=== PATIENT | female | born 1960 | race Caucasian/White ===

== ENCOUNTER 2019-12-19 14:18 | Emergency (ER) | payer BC, SELFPAY ==
[2019-12-19 14:15] VITALS: BP 133/79; PULSE 81; RESP 18; TEMP 36.9; O2SAT 98; BMI 32.9
--- NOTE | 2019-12-19 14:33 | DI.RAD.S_ITS ---
PROCEDURE: XR HAND RT MIN 3V INDICATIONS: GLF, pain in 3 finger TECHNIQUE: Three views of the right hand acquired. COMPARISON: None. FINDINGS: Bones: No fractures or dislocations. Carpal bones are normally aligned. No suspicious bony lesions. Soft tissues: No suspicious soft tissue calcifications. IMPRESSION: 1. No fracture or dislocation. Dictated by: Osito Cosme M.D. on 12/19/2019 at 15:24 Approved by: Osito Cosme M.D. on 12/19/2019 at 15:25
--- NOTE | 2019-12-19 14:33 | DI.RAD.S_ITS ---
PROCEDURE: XR FEMUR RT MIN 2V INDICATIONS: GLF, pain TECHNIQUE: 2 views of the femur were acquired. COMPARISON: [facility], CR, XR KNEE RT 1TO2V, 12/19/2019, 14:32. FINDINGS: Bones: No fractures or dislocations. No suspicious bony lesions. Soft tissues: No suspicious soft tissue calcifications or masses. IMPRESSION: 1. No fracture or dislocation. Dictated by: Osito Cosme M.D. on 12/19/2019 at 15:21 Approved by: Osito Cosme M.D. on 12/19/2019 at 15:23
--- NOTE | 2019-12-19 14:33 | DI.RAD.S_ITS ---
PROCEDURE: XR TIBIA FUBULA RT 2V INDICATIONS: GLF, pain TECHNIQUE: 2 views of the tibia and fibula were acquired. COMPARISON: [facility], CR, XR KNEE RT 1TO2V, 12/19/2019, 14:32. FINDINGS: Bones: No fractures or dislocations. No suspicious bony lesions. Soft tissues: No suspicious soft tissue calcifications or masses. IMPRESSION: 1. No fracture or dislocation. Dictated by: Osito Cosme M.D. on 12/19/2019 at 15:20 Approved by: Osito Cosme M.D. on 12/19/2019 at 15:21
--- NOTE | 2019-12-19 14:33 | DI.RAD.S_ITS ---
PROCEDURE: XR KNEE RT 1TO2V INDICATIONS: GLF, pain TECHNIQUE: To views of the knee were acquired. COMPARISON: None. FINDINGS: Bones: No fractures or dislocations. There is tricompartmental osteophytosis. No suspicious bony lesions. Soft tissues: There is a small joint effusion. No suspicious soft tissue calcifications. IMPRESSION: 1. No fracture or dislocation. 2. Small joint effusion. Dictated by: Osito Cosme M.D. on 12/19/2019 at 14:42 Approved by: Osiot Cosme M.D. on 12/19/2019 at 15:20
[2019-12-19] MEDS: ACETAMINOPHEN 325 MG TABLET PO (14:40)
[2019-12-19] MEDS: OXYCODONE/ACETAMINOPHEN 5/325 TABLET 1 TAB PO (14:41)
[2019-12-19 15:57] VITALS: PULSE 80; O2SAT 97
[2019-12-19 16:00] VITALS: PULSE 80; O2SAT 97
[2019-12-19 16:30] VITALS: PULSE 85; O2SAT 96
--- NOTE | 2019-12-19 16:50 | ED.FALL ---
HPI - Fall <Alex Goel [facility] - Last Filed: 12/20/19 02:01> General Chief Complaint: Fall Stated Complaint: GLF Time Seen by Provider: 12/19/19 14:18 Source: patient and EMS Mode of arrival: EMS Limitations: no limitations History of Present Illness HPI Narrative: This is a 59-year-old female, who has medical history as hypertension and type 2 diabetes presents to ED with EMS with chief complain of right femur, knee, tib-fib discomfort and right 3rd finger pain after she accidentally slipped on a tile fell and landed on carpet. She reports when she fell her foot was planted on the floor while her leg/body was rotated outward. She fell something popped when she attempted to bear weight and could not stand on affected leg. Patient reports pain is 9/10 and which is throbbing. Patient reports is able to move dominant right hand 3rd finger but with discomfort. She thinks had fallen on outstretched right hand/finger. Patient reports intact sensation in upper and lower extremities and is able to move all toes and fingers. Patient denies injuring her head or other areas. Patient previous injuries or fractures to affected extremities. Related Data Previous Rx's Medication Instructions Recorded oxycodone-acetaminophen [Percocet] 1 tab PO TID PRN #7 tab 12/19/19 Allergies Allergy/AdvReac Type Severity Reaction Status Date / Time Penicillins Allergy Verified 12/19/19 14:43 pseudoephedrine Allergy Verified 12/19/19 14:43 [From Sudafed] hydrocodone AdvReac ITCHING Verified 12/19/19 14:41 Review of Systems <Alex LoeraTyrone [facility] - Last Filed: 12/20/19 02:01> Review of Systems Narrative: General: Denies fever, chills, fatigue, malaise, sweats. HEENT: Denies sinus pain, ear pain, sore throat, difficulty swallowing, dizziness. Respiratory: Denies dyspnea, cough, wheezing, hemoptysis, sputum. Cardiovascular: Denies chest pain, palpitations, orthopnea, edema. Gastrointestinal: Denies nausea, vomiting, abdominal pain, diarrhea, constipation, melena. : Denies dysuria, frequency, incontinence, hematuria, urinary retention. Musculoskeletal: HPI Skin: Denies rash, skin lesions, or other. Neurologic: Denies weakness, headache, numbness, change in speech, confusion, seizures, incoordination. Psychiatric: No concerning psychosocial issues. 12-point review of systems is negative except for those stated above. Patient History <SARAY Carmona - Last Filed: 12/20/19 02:01> Social History Smoking Status: Never smoker Smoking Status: Never smoker alcohol intake frequency: holidays/special occasions only Substance Use Type: does not use Exam <SARAY Carmona - Last Filed: 12/20/19 02:01> Narrative Exam Narrative: GEN: Alert, oriented x 3, well appearing and nourished, and in no acute distress. Head: Normal cephalic, atraumatic. No scalp or temporal tenderness, palpable mass or rash. EYES: Pupils are equal, round, and reactive to light and accommodation. Extraocular muscles are intact bilaterally. There is no subconjunctival hemorrhage, exudate and sclera non-icteric. ENT: Hearing grossly intact. Airway patent. Neck: Trachea in midline. No JVD, non-tender without lymphadenopathy. No masses or thyroid megaly. Supple, non-tender and no meningeal signs. CARDIAC: Normal regular rate and rhythm without murmurs, gallops, or rubs. No chest wall tenderness. No peripheral edema, cyanosis or pallor. Capillary refill is less than 2 seconds. RESPIRATORY: Lungs are clear to auscultate bilaterally. No cough, wheezes, rales, or rhonchi. No stridor, respiratory distress, increase work of breathing, or accessary muscle used. ABD: Abdomen soft, nontender and non-distended. No guarding or rebound tenderness to palpate. Bowel sounds are normal in all 4 quadrants. There is no palpable masses or organomegaly. SKIN: Warm, dry, normal color for patient. No erythema, lesions or rash over visible areas. BACK: Nontender without deformity or crepitance. No flank tenderness. NEUROLOGICAL: Alert and oriented to place, time and person. Sensation and motor function intact bilaterally. No facial droops, dysphasia. PSYCHIATRIC: Good judgement and reason, without hallucinations, abnormal affect or abnormal behaviors during the examination. Patient is not suicidal. Initial Vital Signs Initial Vital Signs: Vital Signs Temperature 98.5 F 12/19/19 14:15 Pulse Rate 81 12/19/19 14:15 Respiratory Rate 18 12/19/19 14:15 Blood Pressure 133/79 12/19/19 14:15 Pulse Oximetry 98 12/19/19 14:15 Extrem Right upper extremity: wrist Details: normal to inspection; no tenderness and no swelling and hand Details: normal to inspection, normal capillary refill, neuromotor exam normal, neurosensory exam normal, tenderness Location: of the 3rd digit, vascular exam Details: radial pulse present and normal capillary refill, normal ROM of fingers and no swelling Right lower extremity: normal to inspection, hip/thigh Details: normal to inspection and tenderness Location: of the mid upper leg Location: laterally; no swelling, no abrasions, no lacerations, no ecchymosis, no crepitus, no deformity and no unusual warmth, knee Details: normal to inspection, tenderness Location: of the lateral joint line, of the pre-patellar area and of the infrapatellar area, swelling Location: of the patella (very mild) and abnormal ROM Details: pain with active ROM during and pain with passive ROM during; no deformity and no unusual warmth, lower leg Details: normal to inspection, tenderness Location: of the proximal fibula and of the distal fibula and no edema; no lacerations, no ecchymosis, no crepitus, no deformity and no unusual warmth, ankle Details: normal to inspection; no tenderness and no swelling and foot Details: normal capillary refill, normal to inspection, toes with normal ROM, no edema, vascular exam Details: dorsalis pedis pulse present and normal capillary refill, tendon exam Details: active flexion normal and active extension normal and motor-sensory exam Details: light-touch normal; no tenderness, no unusual warmth, no abrasion, no laceration and no ecchymosis <Chris Cordova DO - Last Filed: 12/20/19 07:06> Initial Vital Signs Initial Vital Signs: Vital Signs Temperature 98.5 F 12/19/19 14:15 Pulse Rate 81 12/19/19 14:15 Respiratory Rate 18 12/19/19 14:15 Blood Pressure 133/79 12/19/19 14:15 Pulse Oximetry 98 12/19/19 14:15 Procedures <SARAY Carmona - Last Filed: 12/20/19 02:01> Orthopedic Splinting/Casting Injury #1: Side: right Lower Extremity Injury Location: upper leg, knee and lower leg Lower Extremity Immobilizer: knee immobilizer Other Orthopedic Equipment: crutches Post splinting neuro exam: intact Post splinting vascular exam: intact Placed by: Nursing Scores <SARAY Carmona - Last Filed: 12/20/19 02:01> GCS Naveed coma scale eye opening: Spontaneous Naveed coma scale verbal response: Orientated [place] coma scale motor response: Obey commands Naveed coma scale total score: 15 Course <SARAY Carmona - Last Filed: 12/20/19 02:01> Orders Ordered: Discontinued Medications Acetaminophen (Tylenol) 325 mg PO NOW ONE Stop: 12/19/19 14:34 Last Admin: 12/19/19 14:40 Dose: 325 mg Documented by: ANGELA Oxycodone/Acetaminophen (Percocet 5/325) 1 tab PO NOW ONE Stop: 12/19/19 14:34 Last Admin: 12/19/19 14:41 Dose: 1 tab Documented by: ANGELA Vital Signs Vital signs: Vital Signs - 8 hr 12/19/19 14:15 Temperature 98.5 F Pulse Rate 81 Respiratory Rate 18 Blood Pressure 133/79 Pulse Oximetry 98 <Chris Cordova DO - Last Filed: 12/20/19 07:06> Orders Ordered: Discontinued Medications Acetaminophen (Tylenol) 325 mg PO NOW ONE Stop: 12/19/19 14:34 Last Admin: 12/19/19 14:40 Dose: 325 mg Documented by: ANGELA Oxycodone/Acetaminophen (Percocet 5/325) 1 tab PO NOW ONE Stop: 12/19/19 14:34 Last Admin: 12/19/19 14:41 Dose: 1 tab Documented by: ANGELA Vital Signs Vital signs: Vital Signs - 8 hr 12/19/19 14:15 Temperature 98.5 F Pulse Rate 81 Respiratory Rate 18 Blood Pressure 133/79 Pulse Oximetry 98 MDM - Fall <SARAY Carmona - Last Filed: 12/20/19 02:01> Differential Diagnosis Differential diagnosis: Likely other (fracture of femur, fracture of tib/fib, knee fracture, knee sprain, contusion, finger fracture/sprain) Medical Records Attestation: I reviewed the patient's medical records. Imaging Data XR-Hand RT: Radiologist's Impression: [address] [address] XRay Report Signed Patient: Katarina Cespedes [facility]#: [id number] : 9Acct:[id number] Age/Sex: 59 / FDate of Service: 12/19/19 Loc: ED Accession Number: [id number] Procedure: XR hand RT min 3V Ordering Provider: Alex Goel PROCEDURE: XR HAND RT MIN 3V INDICATIONS: GLF, pain in 3 finger TECHNIQUE: Three views of the right hand acquired. COMPARISON: None. FINDINGS: Bones: No fractures or dislocations. Carpal bones are normally aligned. No suspicious bony lesions. Soft tissues: No suspicious soft tissue calcifications. IMPRESSION: 1. No fracture or dislocation. Dictated by: Osito Cosme M.D. on 12/19/2019 at 15:24 Approved by: Osito Cosme M.D. on 12/19/2019 at 15:25 XR-Femur RT: Radiologist's Impression: [address] [address] XRay Report Signed Patient: Katarina Cespedes MMR#: [id number] : 9At:[id number] Age/Sex: 59 / FDate of Service: 12/19/19 Loc: ED Accession Number: [id number] Procedure: XR femur RT min 2V Ordering Provider: Alex Goel PROCEDURE: XR FEMUR RT MIN 2V INDICATIONS: GLF, pain TECHNIQUE: 2 views of the femur were acquired. COMPARISON: [facility], XR KNEE RT 1TO2V, 12/19/2019, 14:32. FINDINGS: Bones: No fractures or dislocations. No suspicious bony lesions. Soft tissues: No suspicious soft tissue calcifications or masses. IMPRESSION: 1. No fracture or dislocation. Dictated by: Osito Cosme M.D. on 12/19/2019 at 15:21 Approved by: Osito Cosme M.D. on 12/19/2019 at 15:23 XR-Knee RT: Radiologist's Impression: [address] [address] XRay Report Signed Patient: Katarina Cespedes MMR#: [id number] : 9Acct:[id number] Age/Sex: 59 / FDate of Service: 12/19/19 Loc: ED Accession Number: [id number] Procedure: XR knee RT 1to2V Ordering Provider: Alex GoelP PROCEDURE: XR KNEE RT 1TO2V INDICATIONS: GLF, pain TECHNIQUE: To views of the knee were acquired. COMPARISON: None. FINDINGS: Bones: No fractures or dislocations. There is tricompartmental osteophytosis. No suspicious bony lesions. Soft tissues: There is a small joint effusion. No suspicious soft tissue calcifications. IMPRESSION: 1. No fracture or dislocation. 2. Small joint effusion. Dictated by: Osito Cosme M.D. on 12/19/2019 at 14:42 Approved by: Osito Cosme M.D. on 12/19/2019 at 15:20 XR-Tib/Fib RT: Radiologist's Impression: [address] [address] XRay Report Signed Patient: Katarina Cespedes MMR#: [id number] : 9Acct:[id number] Age/Sex: 59 / FDate of Service: 12/19/19 Loc: ED Accession Number: [id number] Procedure: XR tibia fibula RT 2V Ordering Provider: Alex GoelP PROCEDURE: XR TIBIA FUBULA RT 2V INDICATIONS: GLF, pain TECHNIQUE: 2 views of the tibia and fibula were acquired. COMPARISON: [facility], , XR KNEE RT 1TO2V, 12/19/2019, 14:32. FINDINGS: Bones: No fractures or dislocations. No suspicious bony lesions. Soft tissues: No suspicious soft tissue calcifications or masses. IMPRESSION: 1. No fracture or dislocation. Dictated by: Osito Cosme M.D. on 12/19/2019 at 15:20 Approved by: Osito Cosme M.D. on 12/19/2019 at 15:21 MDM Narrative Medical decision making narrative: This is a 59 year female who presents to ED with EMS after she had ground level fall on a slippery tile on to carpeted floor with chief complain of right leg including femur, knee, tib-fib with right 3rd finger pain. Patient has intact sensation and pulses distally and able to move fingers and toes without difficulty. Right leg was tender to palpate from mid thigh to mid tib fib. Right finger without obvious deformity but tenderness to palpate. X-ray tests on right hand without acute findings such as fractures or dislocations. Right femur, tib/fib xray tests do not show acute findings including fractures or dislocations. Right knee without fractures but shows small joint effusion. Affected leg was placed on knee immobilizer for support and pain and crutch provided for ambulation as needed. Patient advised to use [id number] Tylenol and or Motrin as needed for discomfort and use RICE therapy and Percocet for severe pain and discussed back pain medication precautions. Patient advised to follow-up with primary care physician if pain persists longer than expected for further imaging test and possible a referral to orthopedist. Patient verbalized understanding and agreement with the treatment plan. Discharge Plan Departure Patient Disposition: Home Clinical Impression: Right knee sprain Qualifiers: Encounter type: initial encounter Involved ligament of knee: unspecified ligament Qualified Code(s): S83.91XA - Sprain of unspecified site of right knee, initial encounter Lower extremity pain Qualifiers: Laterality: right Qualified Code(s): M79.604 - Pain in right leg Contusion of hand, right Qualifiers: Encounter type: initial encounter Qualified Code(s): S60.221A - Contusion of right hand, initial encounter Fall Qualifiers: Encounter type: initial encounter Qualified Code(s): W19.XXXA - Unspecified fall, initial encounter Discharge Date/Time: 12/19/19 17:29 Instructions: DI for Knee Sprain, DI for Contusion Activity Restrictions/Additional Instructions: You have been diagnosed with [right knee sprain, contusions to right lower leg and right 3rd finger from a fall. X-ray tests on right femur, knee, lower leg and right hand without acute findings such as fractures or dislocations. Right leg was splinted on a knee immobilizers and please use crutches for weight-bearing and ambulation as needed.]. What to do: *Take your medications as directed. You can take [id number] Tylenol and or Motrin as needed for discomfort. Tylenol 650-1000 mg up to 3 to 4 times a day as needed for pain. Ibuprofen 400-600 mg as needed for pain up to 3 to 4 times a day with food to decrease GI irritations. Percocet for only severe pain. Percocet has 325 mg of Tylenol. Adult can take up to 4000 mg of Tylenol in 24 hour. *Follow up with your primary care provider in 2-3 days, call for an appointment. Let them know you were seen in the ED and that we asked you to be seen in follow up. Pain persists greater than 7-10 days, consider getting further imaging test and following up with orthopedist. *Return to ED if you have any new, worsening, or concerning symptoms, such as [worsening pain, tingling/numbness/weakness to affected leg, chest pain, breathing difficulty, unable to tolerate fluids, or any acute concerns]. Prescriptions: New oxycodone-acetaminophen [Percocet] 5-325 mg tablet 1 tab PO TID PRN (Reason: pain) Qty: 7 RF: 0 Referrals: [facility] [Provider Group] <Chris Cordova, DO - Last Filed: 12/20/19 07:06> [facility] Dr Cordova Co-Sign Statement: I was available for consultation during this patient's emergency department visit. This chart is signed by myself for administrative purposes only. I did not have direct contact with this patient during this visit. They were seen independently by the APC.
[2019-12-19 17:28] VITALS: BP 139/76; PULSE 86; RESP 20; O2SAT 96
== END 2019-12-19 17:29 | disposition home or self-care (01) ==
PROVIDERS: Emergency Provider Nurse Practitioner Family
DX: S83.91XA Sprain of unspecified site of right knee, initial encounter (principal); M79.604 Pain in right leg; S60.221A Contusion of right hand, initial encounter; W19.XXXA Unspecified fall, initial encounter
CPT/HCPCS: 73130; 73552; 73560; 73590; 99283

== ENCOUNTER → 2020-01-04 18:36 | Outpatient (CLI) | payer BC, SELFPAY ==
--- NOTE | 2020-01-04 18:39 | DI.MRI.S_ITS ---
PROCEDURE: MR KNEE RT WO CON INDICATIONS: UNSPECIFIED INTERNAL DERANGEMENT OF RIGHT KNEE TECHNIQUE: Noncontrast sagittal PD fast spin echo and T2 fast spin echo with fat saturation, sagittal 3-D FLASH with fat saturation; coronal T1 spin echo and PD fast spin echo with fat saturation, and axial PD fast spin echo with fat saturation through the knee. COMPARISON: [facility], CR, XR KNEE RT 1TO2V, 12/19/2019, 14:32. FINDINGS: Image quality: Excellent. Menisci: Complex tear involving body and posterior horn of medial meniscus is seen extending to both superior and inferior articulating surfaces. Complex oblique tear involving anterior horn of lateral meniscus is also seen extending to both superior and inferior articulating surfaces. The meniscal root ligaments appear intact. Cruciate ligaments: There is rupture of anterior cruciate ligament near its femoral insertion. PCL is intact. Medial structures: Low to moderate grade MCL sprain is seen near its femoral insertion. The posterior oblique ligament, semimembranosus tendon insertions, oblique popliteal ligament, and meniscocapsular junction appear intact. Visualized portions of the pes anserinus tendons appear normal. No abnormal bursal fluid. Lateral structures: There is sprain/low-grade partial-thickness tear involving proximal LCL near its femoral insertion. The long and short heads of the biceps femoris tendon appear intact. The popliteus tendon appears normal; the popliteofibular ligament appears intact. The posterosuperior and anteroinferior popliteomeniscal fascicles appear intact. The arcuate and fabellofibular ligaments appear intact, on either side of the lateral inferior geniculate artery. Iliotibial band appears normal. Anterior structures: The quadriceps and patellar tendons appear intact. Patellar alignment is normal. No femoral trochlear dysplasia or ventral trochlear prominence. No edema in the infrapatellar fat pad. Bones and cartilage: Moderate tricompartmental osteoarthritis and chondromalacia is seen more prominent in medial femoral tibial compartment. There is edema involving posterior aspect of proximal tibia extending to lateral tibial plateau with a nondisplaced fracture in posterior lateral tibial plateau and a bony fragment measures 5 millimeter in size. Joint space: There is small to moderate amount of joint fluid, no gross intra-articular loose body.. No Mccord's cyst. Normal appearing synovial plicae are incidentally noted. IMPRESSION: 1. Rupture of anterior cruciate ligament near its femoral insertion. Posterior cruciate ligament is intact. 2. Complex tear involving body and posterior horn of medial meniscus extending to both superior and inferior articulating surfaces. Complex tear also seen involving anterior horn of lateral meniscus extending to both superior and inferior articulating surfaces. 3. Subacute appearing nondisplaced fracture involving posterior lateral tibial plateau with a 5 mm nondisplaced fractured fragment and surrounding edema. Moderate tricompartmental osteoarthritis and chondromalacia more prominent in medial femoral tibial compartment. 4. Low to moderate grade MCL sprain/partial-thickness tear. Low-grade proximal LCL sprain. Dictated by: Mansoor Zhu M.D. on 01/07/2020 at 8:58 Approved by: Mansoor Zhu M.D. on 01/07/2020 at 9:29
== END ==
PROVIDERS: Referring Provider Physician Assistant Medical; Visit Provider Physician Assistant Medical
DX: S83.511A Sprain of anterior cruciate ligament of right knee, initial encounter (principal); S83.231A Complex tear of medial meniscus, current injury, right knee, initial encounter; S83.271A Complex tear of lateral meniscus, current injury, right knee, initial encounter; S82.144A Nondisplaced bicondylar fracture of right tibia, initial encounter for closed fracture; S83.411A Sprain of medial collateral ligament of right knee, initial encounter; S83.421A Sprain of lateral collateral ligament of right knee, initial encounter; M17.11 Unilateral primary osteoarthritis, right knee; M94.261 Chondromalacia, right knee; X58.XXXA Exposure to other specified factors, initial encounter
CPT/HCPCS: 73721